=== PATIENT | female | born 1995 | race African-American/Black ===

== ENCOUNTER 2017-11-20 09:20 | Inpatient (IN) ==
[2017-11-20] MEDS: BETAMETH SODIUM PHOS/ACETATE 30 MG/5 ML VIAL IM SCH (10:26)
[2017-11-20] MEDS ORDERED: TERBUTALINE 1 MG/1 ML VIAL SUBCUT ONE (10:36)
[2017-11-20 10:37] LABS: Basophils % 0.3 % (0.0-0.8); Eosinophils # 0.1 10*3/uL (0.0-0.87); Eosinophils % 1.2 % (0.00-10.9); Hematocrit 28.6 VOL% (35.7-47.0); Hemoglobin 9.4 GM/DL (12.0-16.0); Lymphocytes % 19.3 % (21.3-54.2); Mean Corpuscular HGB Conc 32.9 GM/DL (32-36); Mean Corpuscular Hemoglobin 30 PG (27-34); Mean Corpuscular Volume 89.9 FL (87-102); Mean Platelet Volume 10.2 FL (9.6-12.0); Monocytes # 0.7 10*3/uL (0.11-0.8); Monocytes % 6.4 % (1.7-12.7); Neutrophils # 7.5 10*3/uL (1.4-7.4); Neutrophils % 71.8 % (38.7-73.9); Platelet Count 244 T/CUMM (130-400); Red Blood Count 3.18 MC/CUMM (3.8-5.5); Red Cell Distribution Width 13.5 % (9.3-17.3); White Blood Count 10.4 T/CUMM (4-12)
[2017-11-20] MEDS: LACTATED RINGERS 1,000 ML IV SCH ×3 (10:47→22:23)
[2017-11-20] MEDS ORDERED: AMPICILLIN INJ 2,000 MG in SODIUM CHLORIDE 0.9% 100 ML IV SCH (11:00)
[2017-11-20 11:11] LABS: Alanine Aminotransferase 12 U/L (13-56); Albumin 2.4 G/DL (3.4-5.0); Alkaline Phosphatase 75 U/L (45-117); Aspartate Amino Transferase 8 U/L (0-37); Bilirubin,Total < 0.39 MG/DL (0.2-1.0); Blood Urea Nitrogen 5 MG/DL (7-18); Calcium 8.2 MG/DL (8.5-10.1); Glucose 76 MG/DL (74-106); Osmolality,Calculated 272.5 MOS/KG (273-304); Potassium 3.9 MMOL/L (3.5-5.1); Sodium 139 MMOL/L (136-145); Total Protein 6.6 G/DL (6.4-8.3)
[2017-11-20 11:37] LABS: Apearance,Urine Slightly Hazy (Clear); Bilirubin,Urine Negative (Negative); Blood, Urine Negative (Negative); Glucose,Urine (UA) Negative (Negative); Ketones,Urine Negative (Negative); Mucus,Urine Moderate /LPF (Occasional); Nitrite,Urine Negative (Negative); Protein,Urine Negative; RBC,Urine 5 /HPF (0-4); Urine Color Yellow (Yellow); Urine Specific Gravity 1.014 (1.001-1.035); Urine Urobilinogen < 2.0 EU/DL (0.2-1.0); WBC,Urine 4 /HPF (0-6)
[2017-11-20] MEDS: AMPICILLIN INJ 2,000 MG in SODIUM CHLORIDE 0.9% 100 ML IV SCH ×2 (15:56→22:24)
[2017-11-21] MEDS ORDERED: ACETAMINOPHEN 500 MG TABLET PO PRN (02:37)
[2017-11-21] MEDS: AMPICILLIN INJ 2,000 MG in SODIUM CHLORIDE 0.9% 100 ML IV SCH ×2 (04:45→10:54)
[2017-11-21] MEDS: LACTATED RINGERS 1,000 ML IV SCH (05:00)
[2017-11-21] MEDS ORDERED: NIFEdipine 10 MG CAPSULE PO SCH ×3 (09:00→15:00)
[2017-11-21] MEDS: BETAMETH SODIUM PHOS/ACETATE 30 MG/5 ML VIAL IM SCH (10:54)
[2017-11-21] MEDS ORDERED: AMPICILLIN 500 MG CAPSULE PO SCH (13:00)
[2017-11-21] MEDS: AMPICILLIN 500 MG CAPSULE PO SCH ×2 (14:59→20:41)
[2017-11-21] MEDS: NIFEdipine 10 MG CAPSULE PO SCH ×2 (19:08→19:29)
[2017-11-22] MEDS: NIFEdipine 10 MG CAPSULE PO SCH ×3 (01:58→13:37)
[2017-11-22] MEDS: AMPICILLIN 500 MG CAPSULE PO SCH ×3 (02:00→13:37)
== END 2017-11-22 15:08 | disposition home or self-care (01) | DRG 566 ==
LOC: N.LDOUT 09:20 → N.LD 09:24
PROVIDERS: ADMIT Obstetrics & Gynecology; ATTEND Obstetrics & Gynecology